=== PATIENT | male | born 1985 | race Caucasian/White ===

== ENCOUNTER 2018-06-21 11:58 | Emergency (ER) | payer SELFPAY | END 2018-06-21 12:37 | disposition home or self-care (01) | LOC: BURERS 11:58 | DX: Z53.21 Procedure and treatment not carried out due to patient leaving prior to being seen by health care provider (principal) ==

== ENCOUNTER 2023-06-25 11:36 | Emergency (ER) | payer OTHER, SELFPAY ==
[2023-06-25] MEDS ORDERED: predniSONE 20 MG TAB ONE (12:15)
[2023-06-25] MEDS ORDERED: Ibuprofen 800 MG TAB ONE (12:15)
== END 2023-06-25 12:22 | disposition home or self-care (01) ==
LOC: BURERS 11:36
DX: M54.32 Sciatica, left side (principal); M62.830 Muscle spasm of back; F17.210 Nicotine dependence, cigarettes, uncomplicated
CPT/HCPCS: 99283; J7512